=== PATIENT | male | born 1990 | race Caucasian/White ===

== ENCOUNTER 2021-10-06 15:21 | Emergency (ER) | payer OTHER ==
[2021-10-06] MEDS ORDERED: BACTRIM DS TAB1 EACH PO (17:19)
[2021-10-06] MEDS ORDERED: VIBRAMYCIN100 MG PO (17:19)
== END 2021-10-06 17:29 | disposition home or self-care (01) ==
LOC: FER 15:21
DX: L03.115 Cellulitis of right lower limb (principal)
CPT/HCPCS: 99283